=== PATIENT | male | born 1960 | race Caucasian/White ===

== ENCOUNTER → 2022-04-16 | Outpatient (CLI) | payer BC ==
--- NOTE | 2022-04-16 08:59 | MR ---
EXAMINATION TYPE: MR cervical spine wo con DATE OF EXAM: 04/16/2022 INDICATION: Patient age:Male; 61 years old; Reason for study: M54.2 CERVICALGIA. Cervicalgia COMPARISON: None. TECHNIQUE: Multi planar, multi sequence imaging was performed utilizing: T1-weighted, T2-weighted, an d turbo inversion recovery imaging of the cervical spine. IV Contrast: None FINDINGS: Alignment: The cervical vertebral bodies have preserved heights. Alignment is within normal limits gi donna patient positioning. Bones: T2 vertebral body height T1 high T2 signal probable hemangioma. The remainder of the signal is within normal limits. Cord: The spinal cord is unremarkable with regards to their signal intensity and morphology. Discs: Intervertebral disc signal is maintained. C2-C3: No significant disc pathology. The spinal canal is patent. No neural foraminal stenosis. C3-C4: A disc osteophyte complex is present which minimally narrows the ventral subarachnoid space. Bilateral facet and uncovertebral joint arthropathy are present with mild left neural foraminal sten osis. The right neural foramen is patent. C4-C5: No significant disc pathology. The spinal canal is patent. No neural foraminal stenosis. No s ignificant facet joint arthropathy left greater than right with atrophic facets. C5-C6: No significant disc pathology. The spinal canal is patent. No neural foraminal stenosis. C6-C7: No significant disc pathology. The spinal canal is patent. Bilateral facet and uncovertebral joint arthropathy are present with mild left neural foraminal stenosis. The right neural foramen is p atent. C7-T1: No significant disc pathology. The spinal canal is patent. No neural foraminal stenosis. Other: Mucosal thickening of the maxillary and sphenoid sinuses. IMPRESSION: 1. No evidence for disc herniation or significant spinal canal stenosis. 2. Mild disc degeneration with associated osteoarthritic changes. 3. Paranasal sinus disease.
== END | disposition home or self-care (01) ==
LOC: RADMRIMAIN 08:02
PROVIDERS: ATTEND Family Medicine
DX: M50.11 Cervical disc disorder with radiculopathy, high cervical region (principal); M47.22 Other spondylosis with radiculopathy, cervical region; J32.8 Other chronic sinusitis
CPT/HCPCS: 72141